=== PATIENT | female | born 1945 | race Caucasian/White ===

== ENCOUNTER 2023-09-15 12:50 | Emergency (ER) | payer MEDICARE, OTHER ==
[2023-09-15] MEDS ORDERED: bisacodyL 10 MG SUPP RECTAL STA (13:18)
--- NOTE | 2023-09-15 13:21 | ED ---
General Adult HPI - General Source: patient, RN notes reviewed Mode of arrival: wheelchair Limitations: physical limitation <Dong Cooper - Last Filed: 09/15/23 16:01> <David Crabtree - Last Filed: 09/15/23 22:12> - General Chief complaint: Abdominal Pain Stated complaint: constipation Time Seen by Provider: 09/15/23 13:09 - History of Present Illness Initial comments: Patient is a pleasant 78-year-old female presenting to the emergency department with concerns with constipation. Patient had only a small bowel movement 2 days ago, none since that time. Patient normally goes daily. Patient has some fullness sensation in her abdomen. No nausea vomiting. No fever. No diarrhea. No history of chronic similar symptoms previously. (Dong Cooper) - Related Data Allergies Allergy/AdvReac Type Severity Reaction Status Date / Time aspirin Allergy Rash/Hives Verified 09/15/23 13:06 Penicillins Allergy Rash/Hives Verified 09/15/23 13:06 Review of Systems ROS Other: All systems not noted in ROS Statement are negative. Constitutional: Denies: fever Eyes: Denies: eye pain ENT: Denies: ear pain Gastrointestinal: Reports: as per HPI, constipation. Denies: nausea, vomiting Genitourinary: Denies: dysuria Musculoskeletal: Denies: back pain <Dong Copoer - Last Filed: 09/15/23 16:01> ROS Other: All systems not noted in ROS Statement are negative. <David Crabtree - Last Filed: 09/15/23 22:12> ROS Statement: Those systems with pertinent positive or pertinent negative responses have been documented in the HPI. Past Medical History Past Medical History: No Reported History History of Any Multi-Drug Resistant Organisms: None Reported Past Surgical History: Section, Orthopedic Surgery, Tonsillectomy Past Psychological History: No Psychological Hx Reported Smoking Status: Former smoker Past Alcohol Use History: None Reported Past Drug Use History: None Reported <Dong Cooper - Last Filed: 09/15/23 16:01> General Exam Limitations: no limitations General appearance: alert, in no apparent distress Head exam: Present: normocephalic Eye exam: Present: normal appearance Neck exam: Present: normal inspection Respiratory exam: Present: normal lung sounds bilaterally Cardiovascular Exam: Present: regular rate, normal rhythm GI/Abdominal exam: Present: soft, tenderness (Mild tenderness epigastric and suprapubic), normal bowel sounds. Absent: distended, guarding, rebound, rigid, pulsatile mass Rectal exam: Present: fecal impaction (Patient is unable to tolerate minimal attempt at disimpaction) Extremities exam: Present: normal inspection Neurological exam: Present: alert Psychiatric exam: Present: normal affect, normal mood Skin exam: Present: normal color <Dong Cooper - Last Filed: 09/15/23 16:01> Course Vital Signs 09/15/23 13:03 Temperature 98.6 F Pulse Rate 76 Respiratory 18 Rate Blood Pressure 159/86 O2 Sat by Pulse 96 Oximetry Medical Decision Making <KennethDong - Last Filed: 09/15/23 16:01> <David Crabtree - Last Filed: 09/15/23 22:12> - Medical Decision Making Was pt. sent in by a medical professional or institution (, PA, LOSS PREVENTION GUARD, urgent care, hospital, or penitentiary...) When possible be specific @ -[No] Did you speak to anyone other than the patient for history (EMS, parent, family, police, friend...)? What history was obtained from this source @ -Family is present and helps fight history including onset Did you review nursing and triage notes (agree or disagree)? Why? @ -[I reviewed and agree with nursing and triage notes] Were old charts reviewed (outside hosp., previous admission, EMS record, old EKG, old radiological studies, urgent care reports/EKG's, penitentiary records)? Report findings @ -[No old charts were reviewed] Differential Diagnosis (chest pain, altered mental status, abdominal pain women, abdominal pain men, vaginal bleeding, weakness, fever, dyspnea, syncope, headache, dizziness, GI bleed, back pain, seizure, CVA, palpatations, mental health, musculoskeletal)? @ -Differential Abdominal Pain Women: Appendicitis, Cholecystitis, diverticulosis, ischemic bowel, pancreatitis, hepatitis, UTI, gastroenteritis, AAA, incarcerated hernia, bowel obstruction, constipation, inflammatory bowel, hepatitis, peptic ulcer disease, splenic infarction, perforated viscus, vulvitis, ovarian torsion, PID, kidney stone, placenta abruption, this is not meant to be an all-inclusive list EKG interpreted by me (3pts min.). @ -[As above] X-rays interpreted by me (1pt min.). @ -Abdominal x-ray shows no acute process CT interpreted by me (1pt min.). @ -Ending U/S interpreted by me (1pt. min.). @ -[None done] What testing was considered but not performed or refused? (CT, X-rays, U/S, labs)? Why? @ -[None] What meds were considered but not given or refused? Why? @ -[None] Did you discuss the management of the patient with other professionals (erika roland i.e. , PA, LOSS PREVENTION GUARD, lab, RT, psych nurse, criminal justice social worker, nursing manager, teacher, radio division officer, immigration case worker)? Give summary @ -[No] Was smoking cessation discussed for >3mins.? @ -[No] Was critical care preformed (if so, how long)? @ -[No] Were there social determinants of health that impacted care today? How? (Homelessness, low income, unemployed, alcoholism, drug addiction, transportation, low edu. Level, literacy, decrease access to med. care, fdc, rehab)? @ -[No] Was there de-escalation of care discussed even if they declined (Discuss DNR or withdrawal of care, Hospice)? DNR status @ -[No] What co-morbidities impacted this encounter? (DM, HTN, Smoking, COPD, CAD, Cancer, CVA, ARF, Chemo, Hep., AIDS, mental health diagnosis, sleep apnea, morbid obesity)? @ -[None] Was patient admitted / discharged? Hospital course, mention meds given and route, prescriptions, significant lab abnormalities, going to OR and other pertinent info. @ -Patient given enema 2 without improvement of symptoms. Computed tomography scan ordered. Case will be endorsed to Dr. Crabtree at shift change. (Dong Cooper) Patient signed out to me pending results of CT. Patient has been constipated since a few days ago with no significant bowel movements. CT imaging is interpreted by myself reveals no obvious obstruction but she does have a large rectal stool ball. I discussed results with the patient, and decision was made to administer an additional enema and see if there is any relief. Following reevaluation come patient associates have a bowel movement. At this time IV was placed, she was placed on IV fluids and given Dilaudid. Manual disimpaction was completed by myself via removed a large volume of nonbloody stool. She does successful bowel movement after the procedure. I believe it is safe the patient be discharged home at this time. She does have enemas as well as stool softeners at home. She was in agreement with the plan for follow-up with PCP. Diagnosis/symptom? @ -Constipation, rectal stool ball Acute, or Chronic, or Acute on Chronic? @ -Acute Uncomplicated (without systemic symptoms) or Complicated (systemic symptoms)? @ -Complicated Side effects of treatment? @ -none Exacerbation, Progression, or Severe Exacerbation] @ -no Poses a threat to life or bodily function? @ -no (David Crabtree) Disposition <Dong Cooper - Last Filed: 09/15/23 16:01> Is patient prescribed a controlled substance at d/c from ED?: No Time of Disposition: 21:21 <David Crabtree - Last Filed: 09/15/23 22:12> Clinical Impression: Constipation Disposition: HOME SELF-CARE Condition: Good Referrals: None,Stated [Primary Care Provider] - 1-2 days
[2023-09-15 13:24] VITALS: RESP 18
[2023-09-15] MEDS ORDERED: NA PHOS,M-B/NA PHOS,DI-BA 133 ML ENEMA RECTAL STA ×2 (13:44→17:24)
--- NOTE | 2023-09-15 14:03 | XR ---
EXAMINATION TYPE: XR abdomen 1V DATE OF EXAM: 09/15/2023 COMPARISON: None INDICATION: Constipation TECHNIQUE: Single view abdomen upright view FINDINGS: There is a normal bowel gas pattern. No suspicious air-fluid levels or differential air-fluid levels are present. No free air is evident. No mass effect is evident. Psoas margins are normal. No organomegaly is present. Osseous structures appear unremarkable. IMPRESSION: 1. No acute radiographic changes.
[2023-09-15] MEDS ORDERED: LACTULOSE 20 GM/30 ML CUP PO ONE (16:01)
--- NOTE | 2023-09-15 17:00 | CT ---
EXAMINATION TYPE: CT abdomen pelvis wo con CT DLP: 931.7 mGycm, Automated exposure control for dose reduction was used. DATE OF EXAM: 09/15/2023 4:38 PM COMPARISON: None CLINICAL INDICATION:Female, 78 years old with history of abp; abdominal pain TECHNIQUE: Axial CT abdomen pelvis wo con;Sagittal and coronal reformats were created on a separate workstation. Contrast used: mL of , (none if empty) Oral contrast used: without Oral Contrast (none if empty) FINDINGS: LOWER CHEST: Scattered calcified granulomas. ABDOMEN LIVER: Right hepatic lobe probable simple renal cyst. GALLBLADDER AND BILE DUCTS: Gallstones layering dependently. PANCREAS: No ductal dilation or mass. SPLEEN: Calcified granulomas. ADRENAL GLANDS: Unremarkable. KIDNEYS AND URETERS: No evidence of hydronephrosis or renal calculus. The ureters are unremarkable. PELVIS BLADDER: Unremarkable REPRODUCTIVE: Unremarkable. ABDOMEN & PELVIS STOMACH AND BOWEL: No evidence of bowel obstruction. Scattered colonic diverticula. Large bowel in th e rectum measuring up to 6.0 cm PERITONEUM/RETROPERITONEUM: No evidence of pneumoperitoneum or free fluid. VASCULATURE: No evidence of aortic aneurysm. MUSCULOSKELETAL: No acute osseous abnormalities. Moderate disc degeneration changes are present throu ghout the thoracolumbar spine. LYMPH NODES: No gross evidence for lymphadenopathy. SOFT TISSUE/ABDOMINAL WALL: Fat-containing umbilical hernia. IMPRESSION: 1. No evidence for acute abdominal process. 2. Cholelithiasis. 3. Colonic diverticulosis. 4. Chronic granulomatous disease
[2023-09-15] MEDS ORDERED: SODIUM CHLORIDE 0.9% 1,000 ML IV STA (19:22)
[2023-09-15] MEDS ORDERED: HYDROmorphone 1 MG/ML 1 ML SYRINGE IVP STA (19:22)
[2023-09-15 22:27] VITALS: BP 125/50; PULSE 88; TEMP 98.2
== END 2023-09-15 22:12 | disposition home or self-care (01) ==
LOC: EC 12:50
DX: K59.00 Constipation, unspecified (principal); Z87.891 Personal history of nicotine dependence; Z88.0 Allergy status to penicillin; Z88.5 Allergy status to narcotic agent
CPT/HCPCS: 74018; 74176; 96374; 96361; 99284; J1170

== ENCOUNTER 2024-01-28 08:20 | Day surgery (SDC) | payer MEDICARE, OTHER ==
[2024-01-20 16:00] VITALS: BMI 38.0
[2024-01-28 08:58] VITALS: TEMP 97.3
[2024-01-28] MEDS: LACTATED RINGERS 1,000 ML IV SCH (09:06)
[2024-01-28] MEDS ORDERED: GLYCOPYRROLATE 0.2 MG/ML 2 ML VIAL ONE (10:10)
[2024-01-28] MEDS ORDERED: PROPOFOL 10 MG/ML 20 ML VIAL IV ONE (10:10)
--- NOTE | 2024-01-28 10:13 | P.GSHP ---
History of Present Illness H&P Date: 01/28/24 CHIEF COMPLAINT: GERD and in bowel habits HISTORY OF PRESENT ILLNESS: The patient is a 79-year-old female who presents with gastroesophageal reflux disease with dysphagia and change in bowel habits. Upper and lower endoscopy were offered for further evaluation and management. PAST MEDICAL HISTORY: Please see list. PAST SURGICAL HISTORY: Please see list. MEDICATIONS: Please see list. ALLERGIES: Please see list. SOCIAL HISTORY: No illicit drug use FAMILY HISTORY: No reports of Crohn disease or ulcerative colitis. REVIEW OF ORGAN SYSTEMS: CONSTITUTIONAL: No reports of fevers or chills. GI: Denies any blood in stools, but has change in bowel habits. Has dysphagia. PHYSICAL EXAM: VITAL SIGNS: Stable GENERAL: Well-developed pleasant in no acute distress. HEENT: No scleral icterus. Extraocular movements grossly intact. Moist buccal mucosa. NECK: Supple without lymphadenopathy. CHEST: Unlabored respirations. Equal bilateral excursions. CARDIOVASCULAR: Regular rate and rhythm. Distal 2+ pulses. ABDOMEN: Soft, nondistended. MUSCULOSKELETAL: No clubbing, cyanosis, or edema. ASSESSMENT: 1. Gastroesophageal reflux disease with dysphagia 2. Change in bowel habits PLAN: 1. Recommend proceeding with an upper and lower endoscopy Past Medical History Past Medical History: Hyperlipidemia History of Any Multi-Drug Resistant Organisms: None Reported Past Surgical History: Appendectomy, Section, Orthopedic Surgery, Tonsillectomy Additional Past Surgical History / Comment(s): dankurtis c, right foot surgery , rotator cuff right shoulder, Additional Past Anesthesia/Blood Transfusion Reaction / Comment(s): no blood transfusion. legs swelled up after sedation Smoking Status: Former smoker Medications and Allergies Home Medications Medication Instructions Recorded Confirmed Type FLUoxetine HCL [PROzac] 40 mg PO DAILY 01/20/24 01/20/24 History Pravastatin Sodium [Pravachol] 20 mg PO DAILY 01/20/24 01/20/24 History Topiramate 100 mg PO BID 01/20/24 01/20/24 History Allergies Allergy/AdvReac Type Severity Reaction Status Date / Time aspirin Allergy Rash/Hives Verified 01/28/24 08:42 Penicillins Allergy Rash/Hives Verified 01/28/24 08:42 Surgical - Exam Vital Signs Temp Pulse Resp BP Pulse Ox 97.3 F L 89 16 166/72 99 01/28/24 08:48 01/28/24 08:48 01/28/24 08:48 01/28/24 08:48 01/28/24 08:48
--- NOTE | 2024-01-28 10:34 | P.PCN ---
Date of Procedure: 01/28/24 Description of Procedure: PREOPERATIVE DIAGNOSIS: Gastroesophageal reflux disease. Morbid obesity. Dysphagia POSTOPERATIVE DIAGNOSIS: Gastroesophageal reflux disease with erosive esophagitis Morbid obesity. Gastritis. Gastric ulcers, acute on chronic Duodenitis Diaphragmatic hiatal hernia OPERATION: Esophagogastroduodenoscopy with biopsies along esophagus, antrum and duodenum SURGEON: Josselin Castro MD ANESTHESIA: MAC. INDICATIONS: The patient is a 79-year-old female who presents with reflux disease. Benefits and risks of the procedure were described. Informed consent was obtained. DESCRIPTION: The patient was brought into the endoscopy suite and laid in the left lateral decubitus position. An Olympus gastroscope was passed along the posterior oropharynx down to the distal esophagus where the squamocolumnar junction was encountered at 35 cm from the incisors. The stomach was entered and no bile reflux was found. Additional findings are listed below. Biopsies with cold forceps were obtained of the antrum. The first through third portion of the duodenum was examined. Retroflexion of the scope confirmed Hill grade 3 lower esophageal valve. The squamocolumnar junction demonstrated LA grade B erosive esophagitis. The stomach was desufflated. The patient tolerated the procedure we ll. FINDINGS: Squamocolumnar junction 35 cm from the incisors. Diaphragmatic hiatus at 37 cm. Hiatal hernia, 2 cm Hill grade 3 lower esophageal valve. LA grade C erosive esophagitis. Biopsies obtained Biopsies obtained of the duodenum. Acute duodenitis Chronic gastritis with biopsies obtained. Acute gastric ulcer, antrum, 3 mm x 3 RECOMMENDATIONS: Carafate 1 g 3 times daily Protonix 40 mg daily for 2-week
--- NOTE | 2024-01-28 10:46 | P.PCN ---
Date of Procedure: 01/28/24 Description of Procedure: PREOPERATIVE DIAGNOSIS: Change in bowel habits POSTOPERATIVE DIAGNOSIS: Scattered diverticulosis Internal/external hemorrhoids, grade 3 OPERATION: Colonoscopy to the cecum, ileocecal valve and appendiceal orifice. SURGEON: Josselin Castro MD. ANESTHESIA: MAC. INDICATIONS: The patient is a 79-year-old female who presents for colonoscopy screening. Benefits and risks were described and informed consent was obtained. DESCRIPTION OF PROCEDURE: The patient had undergone GoLytely prep including lactulose 3-day prep. The patient had been brought into the operating room and laid in the left lateral decubitus position. After adequate intravenous sedation, the rectum was examined with 2% lidocaine jelly. No external hemorrhoids were encountered. The rectal tone was within normal limits. No lesions were palpated in the rectal vault. An Olympus colonoscope was advanced until the cecum, ileocecal valve and appendiceal orifice were clearly viewed. The prep was good. Scattered diverticulosis was encountered. No colonic polyps were found. No evidence of focal colitis was found. Retroflexion of the scope demonstrated grade 1 internal hemorrhoids without active bleeding or inflammation. The colon was desufflated. The patient had tolerated the procedure well. Withdrawal time was over 6 minutes. FINDINGS: Aronchick preparation quality scale 2 (1-5) Internal hemorrhoids, grade 1 No external prolapsed hemorrhoids. No arteriovenous malformations. Scattered diverticulosis No adenomatous polyps. No focal colitis. RECOMMENDATIONS: Lower endoscopy as needed Plan - Discharge Summary Discharge Rx Participant: No New Discharge Prescriptions: Continue Pravastatin Sodium [Pravachol] 20 mg PO DAILY Topiramate 100 mg PO BID FLUoxetine HCL [PROzac] 40 mg PO DAILY Discharge Medication List FLUoxetine HCL [PROzac] 40 mg PO DAILY 01/20/24 [History] Pravastatin Sodium [Pravachol] 20 mg PO DAILY 01/20/24 [History] Topiramate 100 mg PO BID 01/20/24 [History] Follow up Appointment(s)/Referral(s): Josselin Castro MD [STAFF PHYSICIAN] - 02/17/24 9:45 am Patient Instructions/Handouts: Diverticulosis Diet (GEN), Diverticulosis (DC) Activity/Diet/Wound Care/Special Instructions: Repeat colonoscopy as needed Discharge Disposition: HOME SELF-CARE
--- NOTE | 2024-01-28 10:53 | P.PN ---
Progress Note - Text Progress Note Date: 01/28/24 Patient had abnormal rhythm including severe bradycardia requiring additional medications. Will obtain CBC, CMP and EKG as patient has no prior record of labs at this institution
[2024-01-28 11:42] LABS: Basophils % (A) 0 %; Eosinophils % (A) 1 %; HCT 40.1 % (34.0-46.0); HGB 13.1 gm/dL (11.4-16.0); Lymphocytes # (A) 1.7 k/uL (1.0-4.8); Lymphocytes % (A) 39 %; MCHC 32.7 g/dL (31.0-37.0); MCV 98.1 fL (80.0-100.0); Mean Platelet Volume 8.8; Monocytes # (A) 0.2 k/uL (0-1.0); Monocytes % (A) 5 %; Neutrophils # (A) 2.2 k/uL (1.3-7.7); Neutrophils % (A) 52 %; Platelet Count 171 k/uL (150-450); RBC 4.09 m/uL (3.80-5.40); RDW 13.4 % (11.5-15.5); WBC 4.2 k/uL (3.8-10.6)
[2024-01-28 11:56] LABS: ALT 13 U/L (4-34); AST 19 U/L (14-36); African American GFR (CKD) 77 (>60 ml/min/1.73 sqM); Albumin 3.1 g/dL (3.5-5.0); Alkaline Phosphatase 78 U/L (38-126); Anion Gap -1 mmol/L; Blood Urea Nitrogen 13 mg/dL (7-17); Calcium 8.7 mg/dL (8.4-10.2); Carbon Dioxide 30 mmol/L (22-30); Chloride 110 mmol/L (98-107); Glucose 91 mg/dL (74-99); Non-African American GFR(CKD) 67 (>60 ml/min/1.73 sqM); Sodium 139 mmol/L (137-145); Total Bilirubin 0.4 mg/dL (0.2-1.3); Total Protein 5.7 g/dL (6.3-8.2)
[2024-01-28 12:44] VITALS: BP 134/62; PULSE 55; RESP 18
== END 2024-01-28 12:46 | disposition home or self-care (01) ==
LOC: ORWHC2ENDO 08:20
PROVIDERS: ATTEND Surgery Plastic and Reconstructive Surgery
DX: K29.50 Unspecified chronic gastritis without bleeding (principal); K21.00 Gastro-esophageal reflux disease with esophagitis, without bleeding; K29.80 Duodenitis without bleeding; K44.9 Diaphragmatic hernia without obstruction or gangrene; K64.0 First degree hemorrhoids; K64.4 Residual hemorrhoidal skin tags; K25.9 Gastric ulcer, unspecified as acute or chronic, without hemorrhage or perforation; E78.5 Hyperlipidemia, unspecified; E66.01 Morbid (severe) obesity due to excess calories; Z87.891 Personal history of nicotine dependence; Z88.0 Allergy status to penicillin; Z90.49 Acquired absence of other specified parts of digestive tract; Z79.899 Other long term (current) drug therapy
CPT/HCPCS: 88305; 80053; 83735; 85025; 45378; 43239; J2704

== ENCOUNTER 2024-02-08 20:13 | Emergency (ER) | payer MEDICARE, OTHER ==
--- NOTE | 2024-02-08 20:28 | ED ---
General Adult HPI - General Chief complaint: Dizziness Stated complaint: Dizziness Time Seen by Provider: 02/08/24 20:27 Source: patient Mode of arrival: ambulatory Limitations: no limitations - History of Present Illness Initial comments: Patient presents to the ED with her son and [id number] for evaluation. Patient states that about 4.5 hours ago she developed dizziness/lightheadedness. Patient states that she also developed mild heaviness in her chest and some tingling in her arms at that time. Patient states that her symptoms have since improved. Patient states that her blood pressure readings have been erratic since onset of her symptoms. She states that her most elevated blood pressure reading was 134/112. She denies having any chest pain at this time. Patient denies any recent changes in her medications. Patient denies trauma or injury, fever or chills, headache, focal weakness, visual changes, speech difficulty, neck/arm/jaw pain, back pain, pleuritic pain, dyspnea, cough or cold symptoms, palpitations, syncope, nausea/vomiting/diaphoresis, abdominal pain, diarrhea, bloody or melanotic stool, dysuria or urinary symptoms, decreased urine output, leg or calf swelling or pain, or any other symptoms or complaints. - Related Data Home Medications Medication Instructions Recorded Confirmed FLUoxetine HCL [PROzac] 40 mg PO DAILY 01/20/24 01/20/24 Pravastatin Sodium [Pravachol] 20 mg PO DAILY 01/20/24 01/20/24 Topiramate 100 mg PO BID 01/20/24 01/20/24 Previous Rx's Medication Instructions Recorded Omeprazole [PriLOSEC] 40 mg PO DAILY #14 cap 01/28/24 Sucralfate [Carafate] 1 gm PO BID #30 tablet 01/28/24 Allergies Allergy/AdvReac Type Severity Reaction Status Date / Time aspirin Allergy Rash/Hives Verified 02/08/24 20:18 Penicillins Allergy Rash/Hives Verified 02/08/24 20:18 Review of Systems ROS Statement: Those systems with pertinent positive or pertinent negative responses have been documented in the HPI. ROS Other: All systems not noted in ROS Statement are negative. Past Medical History Past Medical History: Hyperlipidemia History of Any Multi-Drug Resistant Organisms: None Reported Past Surgical History: Appendectomy, Section, Orthopedic Surgery, Tonsillectomy Additional Past Surgical History / Comment(s): dand c, right foot surgery , rotator cuff right shoulder, Additional Past Anesthesia/Blood Transfusion Reaction / Comment(s): no blood transfusion. legs swelled up after sedation Past Psychological History: Depression Smoking Status: Former smoker General Exam Limitations: no limitations General appearance: alert, in no apparent distress Head exam: Present: normocephalic Eye exam: Present: normal appearance, PERRL, EOMI. Absent: nystagmus Neck exam: Absent: tenderness Respiratory exam: Present: normal lung sounds bilaterally. Absent: respiratory distress, wheezes, rales, rhonchi, stridor Cardiovascular Exam: Present: regular rate, normal rhythm, normal heart sounds, other (Normal radial pulses bilaterally) GI/Abdominal exam: Present: soft. Absent: tenderness, guarding Extremities exam: Present: full ROM. Absent: pedal edema Neurological exam: Present: alert, oriented X3, CN II-XII intact. Absent: motor sensory deficit Skin exam: Present: warm, dry, normal color Course Vital Signs 02/08/24 20:14 Temperature 98.2 F Pulse Rate 65 Respiratory 16 Rate Blood Pressure 136/56 O2 Sat by Pulse 97 Oximetry - Reevaluation(s) Reevaluation #1: 02/09/24 00:17 Patient denies having any symptoms at this time. Patient remains alert and breathing comfortably. Patient and [id number] are aware of the patient's test results, and patient feels comfortable being discharged home at this time. Patient was made aware of the finding of suspected right lung granuloma and radiologist's recommendation for 6-month follow-up chest x-ray. She agrees to discuss this with her primary care provider. She was counseled about dizziness and chest pain, and she was clearly explained return and follow-up instructions. She feels comfortable with this plan. EKG Findings - EKG Comments: EKG Findings:: Physician interpretation (interpreted by me): Sinus bradycardia, no ectopy, ventricular rate of 54 bpm, normal [place] and QRS intervals, normal QT interval, leftward axis, no ST or T wave abnormality Medical Decision Making - Medical Decision Making Was pt. sent in by a medical professional or institution (, PA, [facility], urgent care, hospital, or penitentiary...) When possible be specific @ -No Did you speak to anyone other than the patient for history (EMS, parent, family, police, friend...)? What history was obtained from this source @ -No Did you review nursing and triage notes (agree or disagree)? Why? @ -I reviewed and agree with nursing and triage notes Were old charts reviewed (outside hosp., previous admission, EMS record, old EKG, old radiological studies, urgent care reports/EKG's, penitentiary records)? Report findings @ -No old charts were reviewed Differential Diagnosis (chest pain, altered mental status, abdominal pain women, abdominal pain men, vaginal bleeding, weakness, fever, dyspnea, syncope, headache, dizziness, GI bleed, back pain, seizure, CVA, palpatations, mental health, musculoskeletal)? @ -Differential Dizziness: Benign paroxysmal positional vertigo, Menieres disease, hypovolemia, arrhythmia, coronary artery syndrome, anemia, hypertension, chest pain, anxiety, GERD, chest wall pain, hypoglycemia, hyperglycemia, electrolyte abnormality, this is not meant to be an all-inclusive list EKG interpreted by me (3pts min.). @ -As above X-rays interpreted by me (1pt min.). @ -Chest x-ray shows no acute abnormality. I agree with the radiologist interpretation as above. CT interpreted by me (1pt min.). @ -None done U/S interpreted by me (1pt. min.). @ -None done What testing was considered but not performed or refused? (CT, X-rays, U/S, labs)? Why? @ -None What meds were considered but not given or refused? Why? @ -None Did you discuss the management of the patient with other professionals (professionals i.e. , PA, [facility], lab, RT, psych nurse, perinatal social worker, dairy frozen manager, teacher, registration officer, manager case management)? Give summary @ -No Was smoking cessation discussed for >3mins.? @ -No Was critical care preformed (if so, how long)? @ -No Were there social determinants of health that impacted care today? How? (Homelessness, low income, unemployed, alcoholism, drug addiction, transportation, low edu. Level, literacy, decrease access to med. care, senior care, rehab)? @ -No Was there de-escalation of care discussed even if they declined (Discuss DNR or withdrawal of care, Hospice)? DNR status @ -No What co-morbidities impacted this encounter? (DM, HTN, Smoking, COPD, CAD, Cancer, CVA, ARF, Chemo, Hep., AIDS, mental health diagnosis, sleep apnea, morbid obesity)? @ -None Was patient admitted / discharged? Hospital course, mention meds given and route, prescriptions, significant lab abnormalities, going to OR and other pert inent info. @ -Patient symptoms have resolved while in the ED. Patient's blood pressure has been stable and within normal limits while in the ED. patient's EKG, labs and chest x-ray are all fairly unremarkable. I do not suspect an emergent medical condition at this time. Will discharge patient home at this time. Patient feels comfortable with this plan. Patient was instructed to follow-up closely with her primary care provider. Undiagnosed new problem with uncertain prognosis? @ -No Drug Therapy requiring intensive monitoring for toxicity (Heparin, Nitro, Insulin, Cardizem)? @ -No Were any procedures done? @ -No Diagnosis/symptom? @ -Dizziness and chest heaviness Acute, or Chronic, or Acute on Chronic? @ -Acute Uncomplicated (without systemic symptoms) or Complicated (systemic symptoms)? @ -Default Side effects of treatment? @ -No Exacerbation, Progression, or Severe Exacerbation? @ -No Poses a threat to life or bodily function? How? (Chest pain, [place], [place], pneumonia, PE, COPD, DKA, ARF, appy, cholecystitis, CVA, Diverticulitis, Homicidal, Suicidal, threat to staff... and all critical care pts) @ -No - Lab Data Result diagrams: 02/08/24 22:35 02/08/24 22:42 Lab Results 02/08/24 02/08/24 02/08/24 Range/Units 22:35 22:42 22:42 WBC 6.2 (3.8-10.6) k/uL RBC 4.13 (3.80-5.40) m/uL Hgb 13.0 (11.4-16.0) gm/dL Hct 40.4 (34.0-46.0) % MCV 97.8 (80.0-100.0) fL MCH 31.5 (25.0-35.0) pg MCHC 32.2 (31.0-37.0) g/dL RDW 13.3 (11.5-15.5) % Plt Count 184 (150-450) k/uL MPV 8.9 Neutrophils % 51 % Lymphocytes % 41 % Monocytes % 5 % Eosinophils % 1 % Basophils % 0 % Neutrophils # 3.2 (1.3-7.7) k/uL Lymphocytes # 2.5 (1.0-4.8) k/uL Monocytes # 0.3 (0-1.0) k/uL Eosinophils # 0.1 (0-0.7) k/uL Basophils # 0.0 (0-0.2) k/uL PT 10.0 (10.0-12.5) sec INR 0.9 (<1.2) APTT 22.3 (22.0-30.0) sec Sodium 142 (137-145) mmol/L Potassium 4.2 (3.5-5.1) mmol/L Chloride 112 H (98-107) mmol/L Carbon Dioxide 24 (22-30) mmol/L Anion Gap 6 mmol/L BUN 21 H (7-17) mg/dL Creatinine 0.91 (0.52-1.04) mg/dL Est GFR (CKD-EPI)AfAm 70 (>60 ml/min/1.73 sqM) Est GFR (CKD-EPI)NonAf 61 (>60 ml/min/1.73 sqM) Glucose 94 (74-99) mg/dL Calcium 8.7 (8.4-10.2) mg/dL Magnesium 2.2 (1.6-2.3) mg/dL Total Bilirubin 0.3 (0.2-1.3) mg/dL AST 22 (14-36) U/L ALT 14 (4-34) U/L Alkaline Phosphatase 83 (38-126) U/L Troponin I (0.000-0.034) ng/mL NT-Pro-B Natriuret Pep 727 pg/mL Total Protein 6.3 (6.3-8.2) g/dL Albumin 3.7 (3.5-5.0) g/dL 02/08/24 Range/Units 22:42 WBC (3.8-10.6) k/uL RBC (3.80-5.40) m/uL Hgb (11.4-16.0) gm/dL Hct (34.0-46.0) % MCV (80.0-100.0) fL MCH (25.0-35.0) pg MCHC (31.0-37.0) g/dL RDW (11.5-15.5) % Plt Count (150-450) k/uL MPV Neutrophils % % Lymphocytes % % Monocytes % % Eosinophils % % Basophils % % Neutrophils # (1.3-7.7) k/uL Lymphocytes # (1.0-4.8) k/uL Monocytes # (0-1.0) k/uL Eosinophils # (0-0.7) k/uL Basophils # (0-0.2) k/uL PT (10.0-12.5) sec INR (<1.2) APTT (22.0-30.0) sec Sodium (137-145) mmol/L Potassium (3.5-5.1) mmol/L Chloride (98-107) mmol/L Carbon Dioxide (22-30) mmol/L Anion Gap mmol/L BUN (7-17) mg/dL Creatinine (0.52-1.04) mg/dL Est GFR (CKD-EPI)AfAm (>60 ml/min/1.73 sqM) Est GFR (CKD-EPI)NonAf (>60 ml/min/1.73 sqM) Glucose (74-99) mg/dL Calcium (8.4-10.2) mg/dL Magnesium (1.6-2.3) mg/dL Total Bilirubin (0.2-1.3) mg/dL AST (14-36) U/L ALT (4-34) U/L Alkaline Phosphatase (38-126) U/L Troponin I <0.012 (0.000-0.034) ng/mL NT-Pro-B Natriuret Pep pg/mL Total Protein (6.3-8.2) g/dL Albumin (3.5-5.0) g/dL - Radiology Data Chest x-ray: 1. No acute pulmonary process. 2. Suspect a granuloma right lung base. Follow-up exam in 6 months recom mended. Disposition Clinical Impression: Dizziness, Chest pain Disposition: HOME SELF-CARE Condition: Stable Instructions (If sedation given, give patient instructions): Chest Pain (ED), Dizziness (ED) Additional Instructions: Return to the ER immediately should you develop new or worsening pain, shortness of breath, feeling faint or fainting, vomiting, a fever, or new or worsening symptoms. Follow-up closely with your primary care provider., Is patient prescribed a controlled substance at d/c from ED?: No Referrals: Darian Braxton Jr, DO [Primary Care Provider] - 1-2 days Time of Disposition: 00:24
[2024-02-08 21:02] VITALS: TEMP 98.2
--- NOTE | 2024-02-08 21:55 | XR ---
EXAMINATION TYPE: XR chest 2V DATE OF EXAM: 02/08/2024 COMPARISON: None INDICATION: Chest pain TECHNIQUE: Frontal and lateral views of the chest are obtained. FINDINGS: The heart size is normal. The pulmonary vasculature is normal. Couple of punctate nodularities are in the peripheral right lower lung field. These could be granulom a. Follow-up exam in 6 months is recommended to reevaluate. No suspicious infiltrates are evident. IMPRESSION: 1. No acute pulmonary process. 2. Suspect a granuloma right lung base. Follow-up exam in 6 months recommended.
[2024-02-08 22:48] LABS: Basophils % (A) 0 %; Eosinophils # (A) 0.1 k/uL (0-0.7); Eosinophils % (A) 1 %; HCT 40.4 % (34.0-46.0); Lymphocytes # (A) 2.5 k/uL (1.0-4.8); Lymphocytes % (A) 41 %; MCH 31.5 pg (25.0-35.0); MCHC 32.2 g/dL (31.0-37.0); MCV 97.8 fL (80.0-100.0); Mean Platelet Volume 8.9; Monocytes # (A) 0.3 k/uL (0-1.0); Monocytes % (A) 5 %; Neutrophils # (A) 3.2 k/uL (1.3-7.7); Neutrophils % (A) 51 %; Platelet Count 184 k/uL (150-450); RBC 4.13 m/uL (3.80-5.40); RDW 13.3 % (11.5-15.5); WBC 6.2 k/uL (3.8-10.6)
[2024-02-08 23:03] LABS: ALT 14 U/L (4-34); AST 22 U/L (14-36); African American GFR (CKD) 70 (>60 ml/min/1.73 sqM); Albumin 3.7 g/dL (3.5-5.0); Alkaline Phosphatase 83 U/L (38-126); Anion Gap 6 mmol/L; Blood Urea Nitrogen 21 mg/dL (7-17); Calcium 8.7 mg/dL (8.4-10.2); Carbon Dioxide 24 mmol/L (22-30); Chloride 112 mmol/L (98-107); Glucose 94 mg/dL (74-99); INR 0.9 (<1.2); Magnesium 2.2 mg/dL (1.6-2.3); Non-African American GFR(CKD) 61 (>60 ml/min/1.73 sqM); Partial Thromboplastin Time 22.3 sec (22.0-30.0); Potassium 4.2 mmol/L (3.5-5.1); Sodium 142 mmol/L (137-145); Total Bilirubin 0.3 mg/dL (0.2-1.3); Total Protein 6.3 g/dL (6.3-8.2)
[2024-02-08 23:12] LABS: NT-Pro-B-Type Natriuretic Pept 727 pg/mL
[2024-02-09 00:54] VITALS: BP 111/48; PULSE 57; RESP 18
== END 2024-02-09 00:35 | disposition home or self-care (01) ==
LOC: EC 20:13
DX: R42 Dizziness and giddiness (principal); R07.89 Other chest pain; R00.1 Bradycardia, unspecified; Z88.0 Allergy status to penicillin; Z88.6 Allergy status to analgesic agent; Z87.891 Personal history of nicotine dependence
CPT/HCPCS: 36415; 71046; 80053; 83735; 83880; 84484; 85025; 85610; 85730; 93005; 99284